=== PATIENT | male | born 1950 | race Caucasian/White ===

== ENCOUNTER → 2020-10-14 | Outpatient (CLI) | payer MEDICARE, OTHER ==
[~2020-10-14] MED LIST: ASPIRIN EC81 MG PO; ATORVASTATIN CA40 MG PO; BENADRYL 25MG C25 MG PO; CARVEDILOL12.5 MG PO; COREG 25MG TAB25 MG PO; CYMBALTA60 MG PO; DIGOX125 MCG PO; DIGOX250 MCG PO; ECOTRIN81 MG PO; FISH OIL 1,0001 EACH PO; FUROSEMIDE40 MG PO; HYDROCODONE-AC1 EACH PO; IMDUR ER TAB 3030 MG PO; LIPITOR40 MG PO; LISINOPRIL5 MG PO; LOVENOX80 MG/0.8 SQ; NEURONTIN600 MG PO; PERCOCET 7.5-31 EACH PO; PROPYLTHIOURACI50 MG PO; PROTONIX 40 MG40 M1 PO; TAMSULOSIN HCL0.4 MG PO; VITAMIN B-12500 MCG PO; VITAMIN C500 M4 PO; VITAMIN D PO; VITAMIN E400 UNI3 PO; WARFARIN SODIUM10 MG PO; WARFARIN SODIUM5 MG PO; XANAX1 MG PO; ZINC50 M1 PO
[2020-10-14 12:20] LABS: RED BLOOD COUNT 3.66 M/UL (4.20-5.50); WHITE BLOOD COUNT 3.2 K/UL (4.5-11.0)
[2020-10-14 12:45] LABS: BUN/CREATININE RATIO 15 (0-10)
== END ==
LOC: OPSV2 11:01
PROVIDERS: Urology
DX: Z01.818 Encounter for other preprocedural examination (principal); N43.3 Hydrocele, unspecified; R94.31 Abnormal electrocardiogram [ECG] [EKG]; I45.2 Bifascicular block; Z01.812 Encounter for preprocedural laboratory examination; Z20.822 Contact with and (suspected) exposure to COVID-19
CPT/HCPCS: 36415; 80048; 85025; 93005; U0003

== ENCOUNTER → 2020-10-18 | Day surgery (SDC) | payer MEDICARE, OTHER | END | disposition home or self-care (01) | LOC: OR 11:23 | DX: N45.2 Orchitis (principal); N50.812 Left testicular pain; I25.10 Atherosclerotic heart disease of native coronary artery without angina pectoris; D64.9 Anemia, unspecified; F41.9 Anxiety disorder, unspecified; I48.91 Unspecified atrial fibrillation; F32.9 Major depressive disorder, single episode, unspecified; I11.0 Hypertensive heart disease with heart failure; I50.22 Chronic systolic (congestive) heart failure; K21.9 Gastro-esophageal reflux disease without esophagitis; E78.5 Hyperlipidemia, unspecified; E03.9 Hypothyroidism, unspecified; G47.30 Sleep apnea, unspecified; Z99.89 Dependence on other enabling machines and devices; Z87.891 Personal history of nicotine dependence; Z88.8 Allergy status to other drugs, medicaments and biological substances; Z79.82 Long term (current) use of aspirin; Z79.01 Long term (current) use of anticoagulants; Z79.899 Other long term (current) drug therapy | CPT/HCPCS: 36415; 85610; J0694; J1170; J2704; J3010; J7030; J7120 ==

== ENCOUNTER → 2021-04-26 | Outpatient (CLI) | payer MEDICARE, OTHER | LOC: HEART 5 14:06 | DX: I50.22 Chronic systolic (congestive) heart failure (principal); I51.7 Cardiomegaly; I51.9 Heart disease, unspecified; Z95.2 Presence of prosthetic heart valve; I37.1 Nonrheumatic pulmonary valve insufficiency | CPT/HCPCS: 93306 ==

== ENCOUNTER 2022-04-04 15:52 | Emergency (ER) | payer MEDICARE, OTHER ==
[2022-04-04 17:02] LABS: HEMOGLOBIN 11.3 gm/dl (14.0-17.5); RED BLOOD COUNT 3.32 M/UL (4.20-5.50); WHITE BLOOD COUNT 2.4 K/UL (4.5-11.0)
[2022-04-04 17:25] LABS: BUN/CREATININE RATIO 18 (0-10)
== END 2022-04-04 18:49 | disposition home or self-care (01) ==
LOC: ER1 15:52
PROVIDERS: Physician Assistant
DX: Z00.01 Encounter for general adult medical examination with abnormal findings (principal); R07.9 Chest pain, unspecified; G89.29 Other chronic pain; Z85.72 Personal history of non-Hodgkin lymphomas; Z85.6 Personal history of leukemia
CPT/HCPCS: 80053; 82550; 82553; 84484; 85025; 93005; 99284